=== PATIENT | female | born 1980 | race Two or more races ===

== ENCOUNTER 2025-02-25 13:30 | Emergency (ER) | payer OTHER ==
[~2025-02-25] VITALS: Ht 165.1 cm; Wt 66.2 kg
[2025-02-25] MEDS ORDERED: 0.9 % SODIUM CHLORIDE 1,000 ML IV ONE (14:00)
[2025-02-25] MEDS ORDERED: ONDANSETRON HCL 2 MG/ML VIAL IV ONE (14:00)
[2025-02-25] MEDS ORDERED: FAMOtidine 10 MG/ML (4ML VIAL) IV ONE (14:00)
[2025-02-25] MEDS ORDERED: MORPHINE SULFATE 2 MG/ML CARTRIDGE IV ONE (14:00)
[2025-02-25] MEDS ORDERED: FAMOTIDINE/PF 20 MG/2 ML VIAL ONE (14:11)
[2025-02-25] MEDS ORDERED: ONDANSETRON HCL 2 MG/ML VIAL ONE (14:11)
[2025-02-25 14:35] LABS: HEMOGLOBIN 14.6 g/dL (11.2-15.7); MEAN CORPUSCULAR HEMOGLOBIN 33.7 pg (25.6-32.2); PLATELET COUNT 507 K/uL (163-369); RED BLOOD COUNT 4.33 M/uL (3.93-5.22); RED CELL DISTRIBUTION WIDTH 13.2 % (11.6-14.4)
[2025-02-25 14:36] LABS: BASO % 0.7 % (0.1-1.2); EOS % 1.2 % (0.7-7.0); LYMPH % 33.6 % (19.3-53.1); MONO % 14.6 % (4.7-12.5); NEUT % 49.7 % (34.0-71.1)
[2025-02-25 14:37] LABS: EOS # 0.05 (0.04-0.54); INR 0.98; LYMPH # 1.36 (1.18-3.74); MONO # 0.59 (0.24-0.82); NEUT # 2.01 (1.56-6.13); PROTHROMBIN TIME 10.7 SECONDS (9.0-11.5)
[2025-02-25 14:42] LABS: PH,URINE 5.5 (5.0-8.0); URINE APPEARANCE Clear; URINE BILIRRUBIN Negative (NEGATIVE); URINE BLOOD Negative; URINE COLOR Yellow; URINE GLUCOSE Negative (NEGATIVE); URINE KETONE Negative (NEGATIVE); URINE LEUKOCYTE Negative; URINE NITRATE Negative; URINE PROTEIN Negative (NEGATIVE); URINE UROBILINOGEN 0.2 E.U./dl
[2025-02-25 14:42] LABS: ALKALINE PHOSPHATASE 94 U/L (50-136); ALT/SGPT 82 U/L (12-78); ANION GAP 10 (10.0-20.0); AST/SGOT 26 U/L (15-37); BILIRUBIN TOTAL 0.66 mg/dL (0.3-1.2); BLOOD UREA NITROGEN 7 mg/dL (7-18); BUN CREA RATIO 11 (7.0-25.0); CALCIUM 9.1 mg/dL (8.5-10.1); CARBON DIOXIDE 28 mEq/L (21-32); CHLORIDE 106 mmol/L (98-107); CREATININE SERUM 0.61 mg/dL (0.55-1.02); GFR 106.06; GLUCOSE FASTING 88 mg/dL (65-100); OSMOLALITY SERUM 277 MOSM/KG (275-295); POTASSIUM 3.73 mEq/L (3.5-5.1); SODIUM 140 mmol/L (136-145)
[2025-02-25 14:45] LABS: HCG QUANTITATIVE < 1 mUI/mL (1-3)
[2025-02-25 14:46] LABS: URINE BACTERIA 84.4 uL (0.0-1933); URINE EPITHELIAL CELLS 16.2 uL (0.0-38.8); URINE RBC 6.1 uL (0.0-20.8); URINE WBC 3.7 uL (0.0-23.2)
[2025-02-25] MEDS ORDERED: CIPROFLOXACIN IN 5 % DEXTROSE 400 MG/200 ML PIGGYBAG IV ONE ×2 (15:49→16:00)
[2025-02-25] MEDS ORDERED: METRONIDAZOLE/SODIUM CHLORIDE 500 MG/100 ML PIGGYBACK IV ONE ×2 (15:49→16:00)
== END 2025-02-25 19:16 | disposition home or self-care (01) ==
LOC: ER 13:51
PROVIDERS: General Practice
DX: R10.31 Right lower quadrant pain (principal); Z88.6 Allergy status to analgesic agent; D68.09 Other von Willebrand disease; R11.0 Nausea